=== PATIENT | female | born 1980 | race Asian ===

== ENCOUNTER → 2017-04-05 | Outpatient (CLI) | payer OTHER ==
--- NOTE | 2017-04-05 18:20 | Diagnostic Imaging Report ---
PROCEDURE:ABDOMINAL ULTRASOUND COMPARISON:None. INDICATIONS:ABDOMEN PAIN FINDINGS: Liver: 16.2 cm. Increased hepatic parenchymal echogenicity. No focal mass. Main portal vein: 0.7 cm. Hepatopetal flow. Gallbladder: No stones, sludge, wall thickening, or pericholecystic fluid. Common Bile Duct: 0.3 cm. No echogenic filling defect. Sonographic Dixon's sign: Negative Right kidney: 10.7 cm. No solid or cystic mass, echogenic calculi, or hydronephrosis. Normal parenchymal echogenicity. Left kidney: 11.5 cm. No solid or cystic mass, echogenic calculi, or hydronephrosis. Normal parenchymal echogenicity. Spleen: 9.7 cm. No focal lesions. Pancreas: The visualized portions of the pancreas are normal. Inferior vena cava: Normal. Aorta: Normal. Ascites: None. CONCLUSION: 1. Mild hepatomegaly with increased echogenicity of the hepatic parenchyma, consistent with fatty infiltration. No focal lesions. Aguilar Fu M.D. Dictated by: Aguilar Fu M.D. on 04/05/2017 at 18:29 Electronically approved by: Aguilar Fu M.D. on 04/05/2017 at 18:29
== END ==
LOC: RAD 15:14
PROVIDERS: ATTEND Internal Medicine
DX: R10.9 Unspecified abdominal pain (principal)
CPT/HCPCS: 76700

== ENCOUNTER → 2017-12-19 | Outpatient (CLI) | payer OTHER ==
--- NOTE | 2017-12-20 08:08 | Diagnostic Imaging Report ---
EXAM: lumbar spine, 2 view, AP and supine lateral; Sacral radiographs 2 views AP and lateral DATE: 12/19/2017 COMPARISON: None FINDINGS: BONES: The alignment is within normal limits. No acute displaced fractures. Bowel gas partially obscures visualization of the sacrum. No evidence of spondylolysis. DISCS: Disc spaces are unremarkable. JOINTS: The sacroiliac joints are unremarkable. Mild facet degenerative changes in the lower lumbar spine. SOFT TISSUES: Unremarkable IMPRESSION: No acute lumbar spine or sacral radiographic findings. Mild facet degenerative changes in the lower lumbar spine. Signed by: Dr. Lindsay Hutton MD on 12/20/2017 8:05 AM
== END ==
LOC: RAD 16:25
PROVIDERS: ATTEND Internal Medicine
DX: M47.812 Spondylosis without myelopathy or radiculopathy, cervical region (principal)
CPT/HCPCS: 72110; 72220; 81025

== ENCOUNTER → 2018-05-16 | Outpatient (CLI) | payer OTHER ==
--- NOTE | 2018-05-16 09:05 | Diagnostic Imaging Report ---
EXAMINATION: CHEST 2 VIEWS INDICATION: CONTACT / EXPOSURE TO BENZENE COMPARISON: None FINDINGS: TUBES and LINES: None. LUNGS: Lungs are well inflated. Lungs are clear. There is no evidence of pneumonia or pulmonary edema. PLEURA: No pleural effusion or pneumothorax. HEART AND MEDIASTINUM: The cardiomediastinal silhouette is unremarkable. BONES AND SOFT TISSUES: No acute osseous lesion. Soft tissues are unremarkable. UPPER ABDOMEN: No free air under the diaphragm. IMPRESSION: No acute radiographic abnormality. Signed by: Dr. Lindsay Hutton MD on 05/16/2018 9:02 AM
--- NOTE | 2018-05-16 09:32 | Diagnostic Imaging Report ---
EXAM: US ABDOMEN COMPLETE INDICATION: Abnormal LFTs COMPARISON: None TECHNIQUE: Transverse and longitudinal carrillo scale and color doppler sonographic images of the abdomen were obtained. FINDINGS: LIVER 18.6 cm in the right midclavicular line. Increased echogenicity of the liver with normal contour, no masses. SPLEEN 10.2 cm in maximum diameter. Normal echogenicity, no masses. GALLBLADDER No gallbladder wall thickening, distension, stone, or pericholecystic fluid. Negative reported sonographic Dixon's sign. BILE DUCTS No intra nor extra-hepatic biliary dilation. Common bile duct measures 0.4 cm PANCREAS: Visualized portions are normal. RIGHT KIDNEY: 10.8 cm Echogenicity: Normal Collecting System: No hydronephrosis Stones: None Cyst/Mass: None LEFT KIDNEY: 11.6 cm Echogenicity: Normal Collecting System: No hydronephrosis Stones: None Cyst/Mass: None VESSELS: Aorta: Visualized portions are within normal size limits Inferior Vena Cava: Visualized portions are normal Main Portal Vein: 1.0 cm, normal size with hepatopetal flow. FREE FLUID: None IMPRESSION: Hepatomegaly with hepatic steatosis. Signed by: Dr. Lindsay Hutton MD on 05/16/2018 9:28 AM
== END ==
LOC: US 07:52
PROVIDERS: ATTEND Internal Medicine
DX: R74.8 Abnormal levels of other serum enzymes (principal); Z77.021 Contact with and (suspected) exposure to benzene; J41.0 Simple chronic bronchitis
CPT/HCPCS: 71046; 76700

== ENCOUNTER 2018-05-19 09:47 | Emergency (ER) | payer OTHER ==
[~2018-05-19] VITALS: Ht 157.5 cm; Wt 75.7 kg
--- OUTSIDE RECORDS SUMMARY | 2018-05-19 09:49 | XMS REPORT ---
Author Author [facility] Address Unknown Phone Unavailable Care Team Providers Care Center Mgr Name Role Phone Brayden RAMÍREZ Unavailable Unavailable Problems This patient has no known problems. Allergies, Adverse Reactions, Alerts This patient has no known allergies or adverse reactions. Medications This patient has no known medications. Results Test Description Test Time Test Comments Text Results Atomic Results Result Comments US ABDOMEN COMPLETE 2018-05-16 09:26:00 [place] [address] Patient Name: DEREK GARCIA MR #: [id number] : 1980 Age/Sex: 37/F Req #: [id number] Adm Physician: Ordered by: VJ RAMÍREZ MD Report #: [id number] Location: Room/Bed: Procedure: [id number] US/US ABDOMEN COMPLETE Exam Date: Exam Time: REPORT STATUS: Signed EXAM: US ABDOMEN COMPLETE INDICATION: Abnormal LFTs COMPARISON: None TECHNIQUE: Transverse and longitudinal carrillo scale and color doppler sonographic images of the abdomen were obtained. FINDINGS: LIVER 18.6 cm in the right midclavicular line. Increased echogenicity of the liver with normal contour, no masses. SPLEEN 10.2 cm in maximum diameter. Normal echogenicity, no masses. GALLBLADDER No gallbladder wall thickening, distension, stone, or pericholecystic fluid. Negative reported sonographic Dixon's sign. BILE DUCTS No intra nor extra-hepatic biliary dilation. Common bile duct measures 0.4 cm PANCREAS: Visualized portions are normal. RIGHT KIDNEY: 10.8 cm Echogenicity: Normal Collecting System: No hydronephrosis Stones: None Cyst/Mass: None LEFT KIDNEY: 11.6 cm Echogenicity: Normal Collecting System: No hydronephrosis Stones: None Cyst/Mass: None VESSELS: Aorta: Visualized portions are within normal size limits Inferior Vena Cava: Visualized portions are normal Main Portal Vein: 1.0 cm, normal size with hepatopetal flow. FREE FLUID: None IMPRESSION: Hepatomegaly with hepatic steatosis. Signed by: Dr. Esteban Ortega MD on 05/16/2018 9:28 AM Dictated By: ESTEBAN ORTEGA MD 7 Transcribed By: ANA MARIA on 05/16/18927 COPY TO: VJ RAMÍREZ MD CHEST 2 VIEWS 2018-05-16 09:00:00 [place] [address] Patient Name: DEREK GARCIA MR #: [id number] : 1980 Age/Sex: 37/F Req #: [id number] Adm Physician: Ordered by: VJ RAMÍREZ MD Report #: [id number] Location: Room/Bed: Procedure: [id number] DX/CHEST 2 VIEWS Exam Date: 05/16/18 Exam Time: 0840 REPORT STATUS: Signed EXAMINATION: CHEST 2 VIEWS INDICATION: CONTACT / EXPOSURE TO BENZENE COMPARISON: None FINDINGS: TUBES and LINES: None. LUNGS: Lungs are well inflated. Lungs are clear. There is no evidence of pneumonia or pulmonary edema. PLEURA: No pleural effusion or pneumothorax. HEART AND MEDIASTINUM: The cardiomediastinal silhouette is unremarkable. BONES AND SOFT TISSUES: No acute osseous lesion. Soft tissues are unremarkable. UPPER ABDOMEN: No free air under the diaphragm. IMPRESSION: No acute radiographic abnormality. Signed by: Dr. Esteban Ortega MD on 05/16/2018 9:02 AM Dictated By: ESTEBAN ORTEGA MD 1 Transcribed By: ANA MARIA on 05/16/18901 COPY TO: VJ RAMÍREZ MD SACRUM X-RAY 2017-12-20 07:58:00 [place] [address] Patient Name: DEREK GARCIA MR #: [id number] : 1980 Age/Sex: 37/F Req #: [id number] Adm Physician: Ordered by: VJ RAMÍREZ MD Report #: [id number] Location: [facility] Room/Bed: Procedure: [id number] DX/SACRUM X-RAY Exam Date: 12/19/17 Exam Time: 3 REPORT STATUS: Signed EXAM: lumbar spine, 2 view, AP and supine lateral; Sacral radiographs 2 views AP and lateral DATE: 12/19/2017 COMPARISON: None FINDINGS: BONES: The alignment is within normal limits. No acute displaced fractures. Bowel gas partially obscures visualization of the sacrum. No evidence of spondylolysis. DISCS: Disc spaces are unremarkable. JOINTS: The sacroiliac joints are unremarkable. Mild facet degenerative changes in the lower lumbar spine. SOFT TISSUES: Unremarkable IMPRESSION: No acute lumbar spine or sacral radiographic findings. Mild facet degenerative changes in the lower lumbar spine. Signed by: Dr. Esteban Ortega MD on 12/20/2017 8:05 AM Dictated By: ESTEBAN ORTEGA MD 4 Transcribed By: ANA MARIA on 12/20/17804 COPY TO: VJ RAMÍREZ MD SP LUMBAR, COMPLETE MIN 4VW 2017-12-20 07:58:00 [place] [address] Patient Name: DEREK GARCIA MR #: [id number] : 1980 Age/Sex: 37/F Req #: [id number] Adm Physician: Ordered by: VJ RAMÍREZ MD Report #: [id number] Location: [facility] Room/Bed: Procedure: [id number] DX/SP LUMBAR, COMPLETE MIN 4VW Exam Date: 12/19/17 Exam Time: 1813 REPORT STATUS: Signed EXAM: lumbar spine, 2 view, AP and supine lateral; Sacral radiographs 2 views AP and lateral DATE: 12/19/2017 COMPARISON: None FINDINGS: BONES: The alignment is within normal limits. No acute displaced fractures. Bowel gas partially obscures visualization of the sacrum. No evidence of spondylolysis. DISCS: Disc spaces are unremarkable. JOINTS: The sacroiliac joints are unremarkable. Mild facet degenerative changes in the lower lumbar spine. SOFT TISSUES: Unremarkable IMPRESSION: No acute lumbar spine or sacral radiographic findings. Mild facet degenerative changes in the lower lumbar spine. Signed by: Dr. Esteban Ortega MD on 12/20/2017 8:05 AM Dictated By: ESTEBAN ORTEGA MD 4 Transcribed By: ANA MARIA on 12/20/17804 COPY TO: VJ RAMÍREZ MD US ABDOMEN COMPLETE [place] [id number] [place] [address] Patient Name: DEREK GARCIA MR #: [id number] : 1980 Age/Sex: 36/F Req #: [id number] Adm Physician: Ordered by: VJ RAMÍREZ MD Report #: [id number] Location: [facility] Room/Bed: Procedure: [id number] US/US ABDOMEN COMPLETE Exam Date: 04/05/17 Exam Time: 1533 REPORT STATUS: Signed PROCEDURE: ABDOMINAL ULTRASOUND COMPARISON: None. INDICATIONS: ABDOMEN PAIN FINDINGS: Liver: 16.2 cm. Increased hepatic parenchymal echogenicity. No focal mass. Main portal vein: 0.7 cm. Hepatopetal flow. Gallbladder: No stones, sludge, wall thickening, or pericholecystic fluid. Common Bile Duct: 0.3 cm. No echogenic filling defect. Sonographic Dixon's sign: Negative Right kidney: 10.7 cm. No solid or cystic mass, echogenic calculi, or hydronephrosis. Normal parenchymal echogenicity. Left kidney: 11.5 cm. No solid or cystic mass, echogenic calculi, or hydronephrosis. Normal parenchymal echogenicity. Spleen: 9.7 cm. No focal lesions. Pancreas: The visualized portions of the pancreas are normal. Inferior vena cava: Normal. Aorta: Normal. Ascites: None. CONCLUSION: 1. Mild hepatomegaly with increased echogenicity of the hepatic parenchyma, consistent with fatty infiltration. No focal lesions. Gavin Fu M.D. Dictated by: Gavin Fu M.D. on 04/05/2017 at 18:29 Electronically approved by: Gavin Fu M.D. on 04/05/2017 at 18:29 Dictated By: GAVIN FU MD 28 Transcribed By: RADHA on 04/05/171828 COPY TO: VJ RAMÍREZ MD
[2018-05-19] MEDS ORDERED: KETOROLAC TROMETHAMINE 30 MG/ML VIAL IV STA (10:05)
[2018-05-19] MEDS ORDERED: SODIUM CHLORIDE 0.9% 1000ML 1,000 ML IV STA (10:05)
[2018-05-19] MEDS ORDERED: METOCLOPRAMIDE HCL 10 MG/2ML VIAL IV ONE (10:15)
[2018-05-19] MEDS ORDERED: DIPHENHYDRAMINE HCL INJ 50 MG/ML VIAL IV ONE (10:15)
--- NOTE | 2018-05-19 10:46 | Diagnostic Imaging Report ---
EXAMINATION: Head CT HISTORY: Coughing vomiting, headache for few days COMPARISON: None. TECHNIQUE: Multidetector axial images were obtained without contrast from the foramen magnum to the vertex . The images were reconstructed using brain and bone algorithms. Thin section brain images were reformatted into coronal and sagittal planes. Image quality: Motion/streaking artifact limits the evaluation of the skull base and posterior cranial fossa. Dose modulation, iterative reconstruction, and/or weight based adjustment of the mA/kV was utilized to reduce the radiation dose to as low as reasonably achievable. FINDINGS: Parenchyma: 1. No abnormal densities. 2. No mass or hemorrhage. No CT evidence of acute territorial vascular insult. Extra-axial spaces:No abnormal density. No extra-axial fluid collections Brain volume: Normal for age. Ventricles: No hydrocephalus or displacement. Arteries: No density suggestive of thrombus. Dural sinuses: No abnormal density. Extra-axial spaces: No abnormal density. Foramen magnum: No mass, Chiari malformation, or basilar invagination. Sella: No obvious mass. Paranasal/mastoid sinuses: Imaged portions unremarkable. Skull/Scalp: No lytic or blastic lesions. No fractures. Focal ill-defined soft tissue density adjacent to the left superior parietal parasagittal region may represent volume averaging artifact as it is only visualized on axial plane. IMPRESSION: No intracranial abnormalities. Signed by: Dr. Kelsi Ledezma M.D. on 05/19/2018 10:43 AM
[2018-05-19 11:23] LABS: BILIRUBIN,URINE NEGATIVE (NEGATIVE); CLARITY,URINE CLEAR (CLEAR); COLOR,URINE COLORLESS (YELLOW); KETONES,URINE NEGATIVE (NEGATIVE); LEUKOCYTE ESTERASE ,URINE NEGATIVE (NEGATIVE); NITRITE,URINE NEGATIVE (NEGATIVE); PROTEIN,URINE DIPSTICK NEGATIVE (NEGATIVE); URINE UROBILINOGEN 0.2 mg/dL (0.2 - 1)
[2018-05-19 11:28] LABS: EPITHELIAL CELLS,URINE FEW /LPF; RBC,URINE 0-5 /HPF (0-5)
[2018-05-19 12:47] LABS: BASOPHILS % 0.3 % (0.0-1.0); EOSINOPHILS # (AUTO) 0.1 (0.0-0.4); EOSINOPHILS % 1.2 % (0.0-6.0); HEMATOCRIT 40.8 % (34.2-44.1); HEMOGLOBIN 14.1 g/dL (12.0-16.0); LYMPHOCYTES # (AUTO) 2.4 (1.0-3.2); LYMPHOCYTES % 34.9 % (18.0-39.1); MEAN CORPUSCULAR HEMOGLOBIN 30.6 pg (28-32); MEAN CORPUSCULAR HGB CONC 34.6 g/dL (31-35); MEAN CORPUSCULAR VOLUME 88.5 fL (81-99); MONOCYTES # (AUTO) 0.3 (0.2-0.8); MONOCYTES % 4.1 % (4.4-11.3); NEUTROPHILS # (AUTO) 4.1 (2.1-6.9); NEUTROPHILS % 59.2 % (38.7-80.0); PLATELET COUNT 305 x10e3/uL (140-360); RED BLOOD COUNT 4.61 x10e6/uL (3.6-5.1); RED CELL DISTRIBUTION WIDTH 11.9 % (11.7-14.4)
[2018-05-19 12:57] LABS: ALANINE AMINOTRANSFERASE 52 IU/L (0-55); ALBUMIN 4.3 g/dL (3.5-5.0); ALKALINE PHOSPHATASE 56 IU/L (40-150); AMYLASE 65 U/L (25-125); ANION GAP 15.1 mmol/L (8-16); BLOOD UREA NITROGEN 6 mg/dL (7-26); BUN/CREATININE RATIO 9 (6-25); CALCIUM 9.3 mg/dL (8.4-10.2); CARBON DIOXIDE 24 mmol/L (22-29); CHLORIDE 104 mmol/L (98-107); CREATININE, SERUM 0.68 mg/dL (0.57-1.11); EST GLOMERULAR FILTRATION RATE > 60 ML/MIN (60-); GLUCOSE 98 mg/dL (74-118); LIPASE 23 U/L (8-78); POTASSIUM 4.1 mmol/L (3.5-5.1); SODIUM 139 mmol/L (136-145)
--- NOTE | 2018-05-19 13:49 | NUR ---
Migel Becker SEWING MACHINIST discussing results at this time.
[2018-05-19] MEDS ORDERED: DEXAMETHASONE SOD PHOS 10 MG/1 ML VIAL IV ONE (14:00)
== END 2018-05-19 14:41 | disposition home or self-care (01) ==
LOC: ER 09:47
DX: R05 Cough (principal); R11.2 Nausea with vomiting, unspecified; G44.89 Other headache syndrome; J01.00 Acute maxillary sinusitis, unspecified; J01.10 Acute frontal sinusitis, unspecified
CPT/HCPCS: 36415; 70450; 80053; 81001; 81025; 82150; 83690; 85025; 99284; J1100; J1200; J1885; J2765; J7030

== ENCOUNTER → 2018-10-06 | Outpatient (CLI) | payer OTHER ==
--- NOTE | 2018-10-06 13:16 | Diagnostic Imaging Report ---
Exam: Pelvic ultrasound. History: Noninflammatory disorder cervix. Comparison: None Findings: Transvaginal sonographic evaluation of the pelvis. The uterus is anteverted in position, measuring 6.2 x 3.1 x 4.8cm. Homogeneous echotexture. Endometrial stripe thickness is 3 millimeters. The right ovary measures 4.2 x 2.7 x 2.6 cm and contains a 1.5 x 1.7 and 1.3 x 1.2 cm anechoic cystic structures,, likely physiologic follicles. The left ovary measures 3.9 x 2.1 x 2.4 cm and appears unremarkable. The cervix appears unremarkable. No free fluid in the pelvis. Impression: Unremarkable transvaginal pelvic ultrasound. Signed by: Fernando Arellano MD on 10/06/2018 1:13 PM
== END ==
LOC: US 10:41
PROVIDERS: ATTEND Internal Medicine
DX: N88.9 Noninflammatory disorder of cervix uteri, unspecified (principal)
CPT/HCPCS: 76830